=== PATIENT | male | born 1975 | race Caucasian/White ===

== ENCOUNTER 2019-05-17 18:29 | Emergency (ER) | payer OTHER ==
[2019-05-17 18:34] VITALS: BP 133/87; PULSE 86; TEMP 98.4; BMI 26.4
--- NOTE | 2019-05-17 19:49 | PDOC ---
History of Present Illness - General Chief Complaint: Injury Stated Complaint: RT HAND INJURY Time Seen by Provider: 05/17/19 19:42 History Source: Patient Exam Limitations: No Limitations - History of Present Illness Initial Comments: 05/17/19 19:47 States yesterday was lifting weights, and right third fourth and fifth digits hyper extended causing significant pain to his right hand. States had a boxers fracture as a teenager that was never cared for and now has significant pain to same area. Occurred: reports: just prior to arrival Severity: reports: moderate Pain Location: reports: upper extremity (Right hand) Modifying Factors: improves with: cold therapy Loss of Consciousness: no loss of consciousness Associated Symptoms (Fall): denies symptoms Past History - Travel Traveled outside of the country in the last 30 days: No Close contact w/someone who was outside of country & ill: No - Past Medical History Allergies/Adverse Reactions: Allergies Allergy/AdvReac Type Severity Reaction Status Date / Time No Known Allergies Allergy Verified 05/17/19 18:34 Home Medications: Ambulatory Orders Albuterol Sulfate Inhaler - [Ventolin HFA Inhaler -] 1 - 2 inh PO Q4H #1 inhaler 05/17/19 Ibuprofen 600 mg PO Q6H PRN #30 tablet 05/17/19 - Psycho Social/Smoking Cessation Hx Smoking History: Never smoked Have you smoked in the past 12 months: No Information on smoking cessation initiated: No Hx Alcohol Use: No Drug/Substance Use Hx: No Review of Systems - Review of Systems Able to Perform ROS?: Yes Is the patient limited Divehi proficient: Yes Constitutional: Yes: See HPI. No: Symptoms Reported, Fever, Malaise HEENTM: Yes: See HPI. No: Symptoms Reported Musculoskeletal: Yes: Symptoms Reported, See HPI, Joint Pain, Joint Swelling Integumentary: Yes: See HPI. No: Symptoms Reported All Other Systems: Reviewed and Negative *Physical Exam - Vital Signs Last Vital Signs Temp Pulse Resp BP Pulse Ox 98.4 F 86 18 133/87 98 05/17/19 18:31 05/17/19 18:31 05/17/19 18:31 05/17/19 18:31 05/17/19 18:31 - Physical Exam General Appearance: Yes: Nourished, Appropriately Dressed, Apparent Distress, Mild Distress HEENT: positive: JUAN J, Normal ENT Inspection, TMs Normal, Pharynx Normal Neck: positive: Supple. negative: Tender Respiratory/Chest: positive: Lungs Clear Musculoskeletal: positive: Normal Inspection. negative: Vertebral Tenderness Extremity: positive: Normal Capillary Refill, Tender, Swelling. negative: Normal Range of Motion (Limited range of motion secondary to swelling) Integumentary: positive: Normal Color, Warm, Swelling, Bruising Neurologic: positive: jde developer II-XII NML intact, Fully Oriented, Alert, Normal Mood/ Affect, Normal Response, Motor Strength 12/12 ED Treatment Course - RADIOLOGY Radiology Studies Ordered: Category Date Time Status HAND- LEFT [RAD] Stat Radiology 05/17/19 19:43 Ordered ED Progress Note - Progress Note Progress Note: 05/17/19 20:18 x-ray negative for fracture or dislocation, Ortho-Glass volar splint placed and will discharge. 2 Percocet tablets for pain relief and follow-up with Ortho at this week for reevaluation and possible further studies for tendon or ligamentous injury. Discharge - Discharge Information Problems reviewed: Yes Clinical Impression/Diagnosis: Sprain of hand, right Qualifiers: Encounter type: initial encounter Qualified Code(s): S63.91XA - Sprain of unspecified part of right wrist and hand, initial encounter Condition: Stable Disposition: HOME - Admission No - Follow up/Referral Referrals: ON STAFF,NOT [Primary Care Provider] - Oseas Kramer MD [Staff Physician] - - Patient Discharge Instructions Patient Printed Discharge Instructions: DI for Finger Sprain Additional Instructions: Rest, ice to area on and off for 15 minutes 4-6 times a day Avoid heavy lifting or exercise until pain and swelling is resolved or until further directed Keep area highly elevated to reduce swelling Use splints/Brendan wrap as directed Followup with orthopedist in one to 2 days if not improving, if significantly improved may wait one week for followup with orthopedist May use ibuprofen every 6 hours as needed for pain - Post Discharge Activity Work/Back to School Note: Back to Work
[2019-05-17] MEDS ORDERED: IBUPROFEN 600 MG TABLET (FP) PO ONE (20:14)
== END 2019-05-17 20:28 | disposition home or self-care (01) ==
LOC: JERFT 18:29
PROC: 2W3CX1Z Immobilization of Right Lower Arm using Splint (ICD-10-PCS; principal; 2019-05-17)
DX: S63.8X1A Sprain of other part of right wrist and hand, initial encounter (principal); X50.0XXA Overexertion from strenuous movement or load, initial encounter; Y93.B3 Activity, free weights; Y92.89 Other specified places as the place of occurrence of the external cause; Y99.8 Other external cause status
CPT/HCPCS: 29126; 73130-TC-RT-FY; 99281-25

== ENCOUNTER 2020-07-30 09:36 | Emergency (ER) | payer OTHER ==
[2020-07-30 09:58] VITALS: TEMP 98.9; BMI 33.0
[2020-07-30] MEDS ORDERED: SODIUM CHLORIDE 1,000 ML IV STA (10:43)
[2020-07-30] MEDS ORDERED: KETOROLAC TROMETHAMINE 30 MG/1 ML VIAL IVPUSH ONE (10:44)
[2020-07-30] MEDS ORDERED: KETOROLAC TROMETHAMINE 30 MG/1 ML VIAL ONE ×2 (10:53→11:10)
[2020-07-30 11:38] LABS: BASO % 0.2 % (0-2.0); EOS % 6.3 % (0-4.5); HEMATOCRIT 48.9 % (35.4-49); HEMOGLOBIN 16.1 GM/dL (11.7-16.9); LYMPH % 15.1 % (8-40); MCH 29.6 pg (25.7-33.7); MCHC 32.9 g/dl (32.0-35.9); MEAN CELL VOLUME 89.8 fl (80-96); MEAN PLT VOLUME 7.8 fl (7.5-11.1); MONO % 9.4 % (3.8-10.2); PLATELET COUNT 348 K/MM3 (134-434); RBC 5.45 M/mm3 (4.00-5.60); RDW 14.3 % (11.9-15.9); WHITE BLOOD COUNT 12.8 K/mm3 (4.0-10.0)
[2020-07-30 11:55] LABS: POTASSIUM 4.2 mmol/L (3.5-5.1)
[2020-07-30 11:58] LABS: ALBUMIN 4.2 g/dl (3.4-5.0); BLOOD UREA NITROGEN 12.4 mg/dL (7-18)
[2020-07-30 12:01] LABS: CREATININE 1.2 mg/dL (0.55-1.3)
[2020-07-30 12:03] LABS: BILIRUBIN,TOTAL 0.3 mg/dL (0.2-1); TOT PROT 7.8 g/dl (6.4-8.2)
[2020-07-30] MEDS ORDERED: CIPROFLOXACIN 400 MG/D5W 400 MG/200 ML IVPB IVPB ONE (15:00)
[2020-07-30 16:02] LABS: URINE APPEARANCE CLEAR; URINE BILIRUBIN NEGATIVE (NEGATIVE); URINE COLOR YELLOW; URINE GLUCOSE (UA) NEGATIVE (NEGATIVE)
[2020-07-30 16:03] LABS: PH,URINE 5.5 (5.0-8.0); URINE KETONE TRACE (NEGATIVE); URINE LEUK ESTERASE NEATIVE (NEGATIVE); URINE NITRITE NEGATIVE (NEGATIVE); URINE PROTEIN NEGATIVE (NEGATIVE)
[2020-07-30 16:57] VITALS: BP 115/87; PULSE 96
== END 2020-07-30 16:57 | disposition home or self-care (01) ==
LOC: JER 09:36
PROC: 3E0337Z Introduction of Electrolytic and Water Balance Substance into Peripheral Vein, Percutaneous Approach (ICD-10-PCS; principal; 2020-07-30)
PROC: 3E033GC Introduction of Other Therapeutic Substance into Peripheral Vein, Percutaneous Approach (ICD-10-PCS; principal; 2020-07-30)
DX: K57.92 Diverticulitis of intestine, part unspecified, without perforation or abscess without bleeding (principal)
CPT/HCPCS: 36415; 74177-TC; 80053; 81003; 83690; 85025; 86850; 86900; 86901; 99285-25; Q9967

== ENCOUNTER 2020-08-28 09:47 | Emergency (ER) | payer OTHER ==
[2020-08-28 10:13] VITALS: BMI 31.2
[2020-08-28] MEDS ORDERED: SODIUM CHLORIDE 0.9% 500 ML INFUS.BAG IV ONE (11:10)
[2020-08-28] MEDS ORDERED: morphine CARPU-JECT 4 MG/1 ML DISP.SYRIN IVPUSH ONE (11:11)
[2020-08-28 11:52] LABS: BASO % 0.4 % (0-2.0); EOS % 14.4 % (0-4.5); HEMATOCRIT 45.1 % (35.4-49); HEMOGLOBIN 14.9 GM/dL (11.7-16.9); LYMPH % 20.5 % (8-40); MCH 29.8 pg (25.7-33.7); MCHC 33.1 g/dl (32.0-35.9); MEAN PLT VOLUME 8.1 fl (7.5-11.1); MONO % 10.9 % (3.8-10.2); NEUT % 53.8 % (42.8-82.8); PLATELET COUNT 278 K/MM3 (134-434); RBC 5.01 M/mm3 (4.00-5.60); WHITE BLOOD COUNT 9.1 K/mm3 (4.0-10.0)
[2020-08-28 12:13] LABS: POTASSIUM 4.4 mmol/L (3.5-5.1)
[2020-08-28 12:16] LABS: ALBUMIN 3.8 g/dl (3.4-5.0); BLOOD UREA NITROGEN 13.1 mg/dL (7-18)
[2020-08-28 12:19] LABS: CREATININE 1.2 mg/dL (0.55-1.3)
[2020-08-28 12:20] LABS: BILIRUBIN,TOTAL 0.4 mg/dL (0.2-1)
[2020-08-28 12:21] LABS: TOT PROT 7.2 g/dl (6.4-8.2)
[2020-08-28] MEDS ORDERED: morphine SULFATE 4 MG/ML VIAL ONE (13:39)
[2020-08-28 15:12] VITALS: BP 138/71; PULSE 72; TEMP 98.3
== END 2020-08-28 15:12 | disposition home or self-care (01) ==
LOC: JER 09:47
PROC: 3E033NZ Introduction of Analgesics, Hypnotics, Sedatives into Peripheral Vein, Percutaneous Approach (ICD-10-PCS; principal; 2020-08-28)
DX: R10.30 Lower abdominal pain, unspecified (principal)
CPT/HCPCS: 36415; 74177-TC; 80053; 83690; 85025; 99285-25; Q9967

== ENCOUNTER 2021-01-28 03:23 | Emergency (ER) | payer OTHER ==
[2021-01-28] MEDS ORDERED: MAGNESIUM SULFATE IN WATER 2 GM/50 ML IVPB IVPB ONE (03:28)
[2021-01-28] MEDS ORDERED: ALBUTEROL SO4 2.5/IPRATROPIUM 0.5 INH SOL 3 ML VIAL.NEB. NEB ONE (03:28)
[2021-01-28] MEDS: ALBUTEROL SO4 2.5/IPRATROPIUM 0.5 INH SOL 3 ML VIAL.NEB. NEB SCH ×4 (03:30→04:00)
[2021-01-28] MEDS: methylPREDNISolone NA SUCC 125 MG/2 ML VIAL IVPB ONE ×2 (03:30→04:18)
[2021-01-28] MEDS: MAGNESIUM SULF 50% (8.12 MEQ/2 ML-1 GM VIAL) IVPB ONE ×2 (03:30→04:18)
[2021-01-28 03:33] VITALS: BP 134/91; TEMP 98.2; BMI 26.4
[2021-01-28] MEDS ORDERED: methylPREDNISolone NA SUCC 125 MG/2 ML VIAL ONE (03:35)
[2021-01-28] MEDS ORDERED: DEXAMETHASONE SOD PHOSPHATE 20 MG/5 ML VIAL IVPB ONE (04:05)
[2021-01-28] MEDS ORDERED: DEXAMETHASONE SOD PHOSPHATE 10 MG/1 ML VIAL ONE (04:05)
[2021-01-28] MEDS ORDERED: TERBUTALINE SULFATE 1 MG/1 ML VIAL SQ ONE ×2 (04:11→04:13)
[2021-01-28 04:24] LABS: BASO % 0.8 % (0-2.0); EOS % 9.9 % (0-4.5); HEMATOCRIT 43.8 % (35.4-49); HEMOGLOBIN 14.9 GM/dL (11.7-16.9); LYMPH % 28.2 % (8-40); MCH 30.1 pg (25.7-33.7); MCHC 34.1 g/dl (32.0-35.9); MEAN CELL VOLUME 88.3 fl (80-96); MEAN PLT VOLUME 7.8 fl (7.5-11.1); MONO % 12.1 % (3.8-10.2); PLATELET COUNT 275 10^3/uL (134-434); RBC 4.96 M/mm3 (4.00-5.60)
[2021-01-28 04:43] LABS: CALCIUM 9.4 mg/dL (8.5-10.1)
[2021-01-28 04:44] LABS: ALBUMIN 3.8 g/dl (3.4-5.0); MAGNESIUM 2.1 mg/dL (1.8-2.4)
[2021-01-28 04:49] LABS: BILIRUBIN,TOTAL 0.2 mg/dL (0.2-1); TOT PROT 6.9 g/dl (6.4-8.2)
[2021-01-28 05:49] VITALS: PULSE 99
== END 2021-01-28 06:55 | disposition home or self-care (01) ==
LOC: JER 03:23
PROC: 3E033NZ Introduction of Analgesics, Hypnotics, Sedatives into Peripheral Vein, Percutaneous Approach (ICD-10-PCS; principal; 2021-01-28)
PROC: 3E033GC Introduction of Other Therapeutic Substance into Peripheral Vein, Percutaneous Approach (ICD-10-PCS; 2021-01-28)
PROC: 3E0F7GC Introduction of Other Therapeutic Substance into Respiratory Tract, Via Natural or Artificial Opening (ICD-10-PCS; 2021-01-28)
DX: J45.901 Unspecified asthma with (acute) exacerbation (principal)
CPT/HCPCS: 36415; 71045-TC-FY; 80053; 82728; 83615; 83735; 85025; 85379; 86140; 93005; 93010; 99285-25; C9803; U0003; U0005